=== PATIENT | female | born 1985 | race Two or more races ===

== ENCOUNTER 2017-01-31 12:25 | Emergency (ER) | payer OTHER ==
[~2017-01-31] VITALS: Ht 162.6 cm; Wt 98.6 kg
[2017-01-31 13:51] LABS: HEMATOCRIT 42.7 % (36.0-46.0); MCH 26.2 PG (29.0-34.0); MCHC 31.9 G/DL (30.0-36.0); MCV 82.1 FL (83-99); RBC DIS.WIDTH-CV 13.2 % (11.8-14.6); RBC DIS.WIDTH-SD 39.7 % (39-53); WHITE BLOOD COUNT 7.1 K/uL (4.1-10.2)
[2017-01-31 13:59] LABS: CHLORIDE 103 mEq/L (99-109); POTASSIUM 3.7 mEq/L (3.7-5.4); SODIUM 136 mEq/L (136-147)
[2017-01-31 14:00] LABS: GLUCOSE 90 mg/dL (70-99)
[2017-01-31 14:02] LABS: ANION GAP 10 MEQ/L (2-14)
[2017-01-31 14:05] LABS: UREA NITROGEN (BUN) 7 mg/dL (9-23)
[2017-01-31 14:11] LABS: GFR ESTIMATE (CALCULATED) > 59 mL/min/; TROP-I INTERPRETATION NEGATIVE; TROPONIN-I < 0.01 ng/mL (0.0-0.30)
[2017-01-31] MEDS ORDERED: BENTYL20 MG PO (15:11)
[2017-01-31] MEDS ORDERED: FLEXERIL10 MG PO (15:11)
[2017-01-31 15:20] LABS: MEAN PLAT.VOLUME 12.3 uM^3 (9.5-12.4); PLAT.SUFFICIENCY ADEQUATE; PLATELET COUNT 190 K/uL (156-360)
[2017-01-31 15:26] VITALS: BP 120/74
== END 2017-01-31 15:27 | disposition home or self-care (01) ==
LOC: EME 12:25
DX: B34.9 Viral infection, unspecified (principal); R51 Headache; R07.1 Chest pain on breathing; Z88.0 Allergy status to penicillin
CPT/HCPCS: 71020; 80048; 84484; 85027; 93005; 99281; 99284; J1885

== ENCOUNTER 2017-07-22 13:31 | Emergency (ER) | payer OTHER ==
[~2017-07-22] VITALS: Ht 162.6 cm; Wt 105.1 kg
[~2017-07-22 13:31] MED LIST: BENTYL20 MG PO; FLEXERIL10 MG PO
[2017-07-22] MEDS ORDERED: MOTRIN800 MG PO (15:27)
[2017-07-22] MEDS ORDERED: ULTRAM50 MG PO (15:27)
[2017-07-22 16:15] VITALS: BP 119/74
== END 2017-07-22 16:17 | disposition home or self-care (01) ==
LOC: EME 13:31
DX: S83.91XA Sprain of unspecified site of right knee, initial encounter (principal); W19.XXXA Unspecified fall, initial encounter; Z88.0 Allergy status to penicillin
CPT/HCPCS: 73564